=== PATIENT | female | born 1970 | race Caucasian/White ===

== ENCOUNTER 2017-06-17 14:38 | Emergency (ER) | payer BC ==
[2017-06-17] MEDS ORDERED: Fluorescein Sodium TOPICAL* 1 MG TEST OPHTHALMIC ONE (15:36)
[2017-06-17] MEDS ORDERED: Tetracaine 0.5% OPTH.SOL 4 ML* 1 DROP BTL RIGHT EYE ONE (15:36)
--- NOTE | 2017-06-17 15:40 | UC ---
Eye Complaint HPI - HPI Summary HPI Summary: Injured right eye with cardboard - History of Current Complaint Chief Complaint: UCEye Stated Complaint: CUTON EYE (RIGHT) Time Seen by Provider: 06/17/17 15:34 Hx Obtained From: Patient ?: No Onset/Duration: Sudden Onset - Had cardboard cut outside of the right eyeball with immediate redness/ swelling., Still Present - But improved with ice. Severity Initially: Severe Severity Currently: Moderate Location of Injury: Conjunctiva Character: Sharp, Foreign Body Sensation Aggravating Factor(s): Blinking Alleviating Factor(s): Other - ice and keeping eye closed Related History: Trauma - Risk Factors Penetrating Injury Risk Factor: Negative Globe Rupture Risk Factors: Negative - Allergies/Home Medications Allergies/Adverse Reactions: Allergies Allergy/AdvReac Type Severity Reaction Status Date / Time No Known Allergies Allergy Verified 06/17/17 14:44 Home Medications: Home Medications Lubiprostone (NF) [Amitiza (NF)] 1 tab BID 06/17/17 [History Confirmed 06/17/17] PARoxetine HCL TAB* [Paxil TAB*] 1 tab DAILY 06/17/17 [History Confirmed ] PMH/Surg Hx/FS Hx/Imm Hx Previously Healthy: Yes - Surgical History Surgical History: Yes Surgery Procedure, Year, and Place: Tonsils. C-sec x2. Hysterectomy - Family History Known Family History: Positive: Cardiac Disease Negative: Diabetes - Social History Occupation: Employed Full-time Lives: With Family Alcohol Use: None Substance Use Type: None Smoking Status (MU): Never Smoked Tobacco Have You Smoked in the Last Year: No - Immunization History Most Recent Influenza Vaccination: NO 2016 Most Recent Tetanus Shot: UTD Review of Systems Eyes: Eye Redness Is Patient Immunocompromised?: No All Other Systems Reviewed And Are Negative: Yes Physical Exam Triage Information Reviewed: Yes Appearance: Well-Appearing, Well-Nourished, Pain Distress - mild holding ice to eye Vital Signs: Initial Vital Signs Temp 97.3 F 06/17/17 14:46 Pulse 78 06/17/17 14:46 Resp 16 06/17/17 14:46 BP 115/69 06/17/17 14:46 Pulse Ox 99 06/17/17 14:46 Vital Signs Reviewed: Yes Eyes: Positive: Other: - OD: large temporal subconjunctival hematoma. Fluorescein positive abrasion straight across the cornea. ENT Exam: Normal Dental Exam: Normal Neck exam: Normal Respiratory Exam: Normal Cardiovascular Exam: Normal Musculoskeletal Exam: Normal Neurological Exam: Normal Psychological Exam: Normal Skin Exam: Normal Eye Complaint Course/Dx - Differential Dx/Diagnosis Differential Diagnosis/HQI/PQRI: Conjunctivitis, Corneal Abrasion, Hyphema Provider Diagnoses: Corneal abrasion. Subcontinval hematoma Discharge - Discharge Plan Condition: Stable Disposition: HOME Patient Education Materials: Corneal Abrasion (ED), Subconjunctival Hemorrhage (ED), Erythromycin (Into the eye) Additional Instructions: EYE OINTMENT USE: Wash hands. Place 1/4" strip across tip of finger. Pull lower lid down with the index finger and stabilize the ointment finger with the middle finger and scrape the ointment off on the lid. Pull the lid out and let go as you look down.
[2017-06-17] MEDS ORDERED: Erythromycin OPTH OINT* APPLIC OINT RIGHT EYE ONE (15:48)
== END 2017-06-17 16:18 | disposition home or self-care (01) ==
LOC: UCCORT 14:38
DX: S05.01XA Injury of conjunctiva and corneal abrasion without foreign body, right eye, initial encounter (principal); H11.31 Conjunctival hemorrhage, right eye; W22.8XXA Striking against or struck by other objects, initial encounter; Y93.9 Activity, unspecified; Y92.89 Other specified places as the place of occurrence of the external cause
CPT/HCPCS: 99202; A9270-GY; G0463